=== PATIENT | male | born 1945 | race Caucasian/White ===

== ENCOUNTER 2016-04-10 11:51 | Day surgery (SDC) | payer MEDICARE, OTHER ==
--- NOTE | ~2016-04-10 | OP ---
Record Of Operation [facility] [address] [place]. [address] NAME: ALFONSO GARCIA : 45 STATUS : [facility]#: [id number] AGE: 70 ADM/REG DATE : 04/10/16 MR#: [id number] REPORT SERV DATE: 04/10/16 DICTATED BY: JESSE RODRIGUEZ III DATE: 04/10/16 REPORT STATUS : Draft TRANSCRIBED BY: MODL DATE: 04/10/16 DATE OF PROCEDURE: 04/10/2016 PROCEDURE: Cystoscopy, right retrograde, right ureteroscopic stone fragmentation with holmium laser and removal of stone fragments with insertion of double-J stent. PREOPERATIVE DIAGNOSIS: Right ureteral calculus. POSTOPERATIVE DIAGNOSIS: Right ureteral calculus. ANESTHESIA: General. SURGEON: Jesse Rodriguez M.D. DESCRIPTION OF PROCEDURE: Following induction of adequate general anesthesia, the patient was placed in dorsal lithotomy position, prepped and draped in a sterile fashion. The urethra was examined and noted to be normal. The prostate was occlusive, lateral lobes meeting in the midline and somewhat pedunculated median lobe. The bladder was heavily trabeculated with numerous cellules and diverticula. There were a few small stone fragments in the base of the bladder. No tumors were noted. The diverticula were examined, and there was no tumor. The 30- and 70-degree lens were used. There was a fairly severe angle around the median lobe to get to the right ureteral orifice. I was able to do a retrograde and the stone was identified. A wire was placed and I attempted to place a short rigid scope alongside it. The orifice was simply too small. I passed the scope over the wire until I found the stone, and on the dusting setting at 0.25, the stone was also rapidly dusted. I then passed a basket to gather up some of the fragments and one of the larger fragments was entrapped which came out to the orifice and we could not remove the basket, so the laser was used through the scope to actually break the stone up in the basket. The stones fell back into the bladder and a wire was placed. At this point, the scope would go along side the wire and fragmented additional stones with the dusting and non-dusting function. Few small stones out there and the remainder were 1 and 2 mm that were hard to gather in the basket. I looked up to approximately L4, L3, and it was very dilated, and there were no stones in the ureter. A retrograde was done and it showed no filling defects. The wire was in good position. A 26-Maori Percuflex stent was placed with a loop in the upper pole and a 3/4 loop in the bladder. A suture was left taped to the patient's penis for later removal. OB/MODL Jesse Rodriguez III, M.D. / [id number] CC: Record Of Operation [address] [address] NAME: ALFONSO GARCIA : 45 STATUS : [facility] PAT#: [id number] AGE: 70 ADM/REG DATE : 04/10/16 MR#: [id number] REPORT SERV DATE: 04/10/16 DICTATED BY: JESSE RODRIGUEZ III DATE: 04/10/16 REPORT STATUS : Draft TRANSCRIBED BY: MODL DATE: 04/10/16 Adriano Holguin III
[~2016-04-10 11:51] MED LIST: ACET500CAP PO; ADVIL PO; C5; PCET PO; T PO; ZESTORETIC1 TAB PO
== END 2016-04-10 18:26 | disposition home or self-care (01) ==
LOC: SDC 11:51
PROVIDERS: Urology
PROC: 0T768DZ Dilation of Right Ureter with Intraluminal Device, Via Natural or Artificial Opening Endoscopic (ICD-10-PCS; 2016-04-10)
PROC: 0TF68ZZ Fragmentation in Right Ureter, Via Natural or Artificial Opening Endoscopic (ICD-10-PCS; principal; 2016-04-10 15:00)
DX: N20.1 Calculus of ureter (principal); I10 Essential (primary) hypertension
CPT/HCPCS: 71020; 93005; C1758; C1769; C2617; J2250; J2370; J2405; J2710; J3010; Q9967

== ENCOUNTER 2016-05-21 16:37 | Emergency (ER) | payer MEDICARE, OTHER ==
[2016-05-21 17:01] LABS: WBC (NOT ORDERED) (RFLEX) 0 (0-5)
[2016-05-21 17:06] LABS: BASOPHILS 0.5 %; BASOPHILS ABSOLUTE 0.04 10/3/uL (0.0-0.16); EOSINOPHILS 1.8 %; EOSINOPHILS ABSOLUTE 0.13 10/3/uL (0.0-0.53); ER CBC TAT 0 Hrs 08 Mins; HEMOGLOBIN 13.8 g/dL (13.6-17.8); IMMATURE GRANULOCYTES 0.3 %; IMMATURE GRANULOCYTES ABSOLUTE 0.02 10/3/uL (0.0-0.11); LYMPHOCYTES 22.1 %; LYMPHOCYTES ABSOLUTE 1.63 10/3/uL (0.67-4.30); MANUAL DIFF NO %; MEAN CORPUS HGB CONC 34.5 g/dL (32.0-36.0); MEAN CORPUSCULAR HEMOGLOB 31.6 pg (26.0-34.0); MEAN CORPUSCULAR VOLUME 91.5 fL (80-100); MEAN PLATELET VOLUME 11.2 fL (9.2-13.0); MONOCYTES 11.9 %; MONOCYTES ABSOLUTE 0.88 10/3/uL (0.21-1.20); NEUTROPHILS 63.4 %; NEUTROPHILS ABSOLUTE 4.69 10/3/uL (2.02-8.40); PLATELET COUNT 197 10/3/uL (150-400); RBC DISTRIBUTION WIDTH 14.6 % (12.0-16.0); RED CELL COUNT 4.37 10/6/uL (4.7-6.1); WHITE BLOOD CELLS 7.4 10/3/uL (4.5-10.5)
[2016-05-21 17:14] LABS: ASCORBIC ACID (UR NOT ORDER) NEG (NEG); BILIRUBIN, URINE NEGATIVE (NEG); ER URINALYSIS TAT 0 Hrs 16 Mins; KETONE, URINE NEGATIVE (NEG); LEUKOCYTE ESTERASE(NOT OR NEG (NEG); NITRITE (URINE) NEG (NEG)
[2016-05-21 17:23] LABS: ALBUMIN 3.6 G/DL (3.5-5.0); ALKALINE PHOSPHATASE 67 U/L (45-117); CALCIUM, SERUM 8.8 MG/DL (8.5-10.4); CHLORIDE, SERUM 110 MMOL/L (96-112); CO2 (CARBON DIOXIDE) 22 MMOL/L (24-34); GLOBULIN 3.5 G/DL (2.5-4.1); GLUCOSE, SERUM 90 MG/DL (60-99); POTASSIUM, SERUM 3.7 MMOL/L (3.5-5.3); SGOT(AST) 18 U/L (5-40); SGPT(ALT) 21 U/L (5-65); SODIUM, SERUM 142 MMOL/L (135-148); TOTAL PROTEIN 7.1 G/DL (6.0-8.5)
[2016-05-21 17:24] LABS: BUN (BLOOD UREA NITROGEN) 28 MG/DL (6-23); GFR AFRICAN AMERICAN 88 ML/MIN (>=60); GFR NON AFRICAN AMERICAN 76 ML/MIN (>=60); TOTAL BILIRUBIN 1.1 MG/DL (0-1.2)
== END 2016-05-21 20:58 | disposition home or self-care (01) ==
LOC: ER 16:37
PROVIDERS: Emergency Medicine
DX: K57.32 Diverticulitis of large intestine without perforation or abscess without bleeding (principal); I71.4 Abdominal aortic aneurysm, without rupture; N28.89 Other specified disorders of kidney and ureter; I10 Essential (primary) hypertension; F17.200 Nicotine dependence, unspecified, uncomplicated; Z87.442 Personal history of urinary calculi; Z79.899 Other long term (current) drug therapy
CPT/HCPCS: 74176; 80053; 81001; 83690; 85025; 99284; A9270-GY

== ENCOUNTER 2016-06-08 10:55 | Emergency (ER) | payer MEDICARE, OTHER | END 2016-06-08 12:24 | disposition home or self-care (01) | LOC: ER 10:55 | PROC: 2W3RX1Z Immobilization of Left Lower Leg using Splint (ICD-10-PCS; principal; 2016-06-08) | DX: S86.912A Strain of unspecified muscle(s) and tendon(s) at lower leg level, left leg, initial encounter (principal); F17.200 Nicotine dependence, unspecified, uncomplicated; I10 Essential (primary) hypertension; Z85.528 Personal history of other malignant neoplasm of kidney; Z79.899 Other long term (current) drug therapy; X58.XXXA Exposure to other specified factors, initial encounter | CPT/HCPCS: 73560-LT; 99283 ==

== ENCOUNTER 2016-08-17 10:49 | Inpatient (IN) | payer MEDICARE, OTHER ==
[2016-08-04 15:52] LABS: BASOPHILS 0.3 %; BASOPHILS ABSOLUTE 0.02 10/3/uL (0.0-0.16); EOSINOPHILS ABSOLUTE 0.13 10/3/uL (0.0-0.53); HEMATOCRIT 44.8 % (40.0-51.0); IMMATURE GRANULOCYTES 0.3 %; IMMATURE GRANULOCYTES ABSOLUTE 0.02 10/3/uL (0.0-0.11); LYMPHOCYTES 25.6 %; LYMPHOCYTES ABSOLUTE 1.64 10/3/uL (0.67-4.30); MANUAL DIFF NO %; MEAN CORPUS HGB CONC 33.5 g/dL (32.0-36.0); MEAN CORPUSCULAR HEMOGLOB 31.1 pg (26.0-34.0); MEAN CORPUSCULAR VOLUME 92.8 fL (80-100); MEAN PLATELET VOLUME 10.8 fL (9.2-13.0); MONOCYTES 8.9 %; MONOCYTES ABSOLUTE 0.57 10/3/uL (0.21-1.20); NEUTROPHILS 62.9 %; NEUTROPHILS ABSOLUTE 4.02 10/3/uL (2.02-8.40); PLATELET COUNT 177 10/3/uL (150-400); RBC DISTRIBUTION WIDTH 14.2 % (12.0-16.0); RED CELL COUNT 4.83 10/6/uL (4.7-6.1); WHITE BLOOD CELLS 6.4 10/3/uL (4.5-10.5)
[2016-08-04 16:19] LABS: BUN (BLOOD UREA NITROGEN) 30 MG/DL (6-23); CALCIUM, SERUM 8.6 MG/DL (8.5-10.4); CHLORIDE, SERUM 107 MMOL/L (96-112); CREATININE 1.13 MG/DL (0.70-1.30); GFR AFRICAN AMERICAN 76 ML/MIN (>=60); GFR NON AFRICAN AMERICAN 65 ML/MIN (>=60); GLUCOSE, SERUM 91 MG/DL (60-99); SODIUM, SERUM 140 MMOL/L (135-148)
[2016-08-04 16:20] LABS: CO2 (CARBON DIOXIDE) 29 MMOL/L (24-34); POTASSIUM, SERUM 4.8 MMOL/L (3.5-5.3)
--- NOTE | ~2016-08-17 | OP ---
Record Of Operation [facility] [address] [place]. [address] NAME: ALFONSO GARCIA : 45 STATUS : ADM IN PAT#: [id number] AGE: 70 ADM/REG DATE : 08/17/16 MR#: [id number] REPORT SERV DATE: 08/17/16 DICTATED BY: EDIE EVANS DATE: 08/17/16 REPORT STATUS : Draft TRANSCRIBED BY: MODL DATE: 08/17/16 DATE OF PROCEDURE: 08/17/2016 PREOPERATIVE DIAGNOSIS: Right renal mass. POSTOPERATIVE DIAGNOSIS: Right renal mass. PROCEDURE PERFORMED: Robot-assisted laparoscopic right partial nephrectomy. SURGEON: Edie Evans M.D. ANESTHESIA: General. COMPLICATIONS: None. SPECIMEN: Right lower pole partial nephrectomy. BLOOD LOSS: 300 mL. DRAINS: Matty-Rockwell Pan. INDICATION: Mr. Garcia is a 70-year-old with an incidentally noted right lower pole renal lesion. This was discovered during CT for abdominal pain. This was further worked up with a contrasted CT and a chest x-ray. There was no evidence of any metastatic disease or renal vein involvement. A 2 cm right lower pole mass that does enhance. He presents for laparoscopic right partial nephrectomy via a robotic approach. TECHNIQUE: An informed consent was obtained, he was brought to the operating room. Ancef was administered perioperatively. General endotracheal anesthesia was administered. A TAP block was performed preop. The Pan catheter was placed. He was positioned in the lateral decubitus position with bed flexed. Care was taken to pad all pressure points. Pneumoperitoneum was established with a Veress needle in the right upper quadrant. I placed a 12 mm Visiport in infraumbilical midline position. Laparoscopic inspection showed no adhesions. The four 8 mm robotic trocars were placed in a linear configuration, right paramedian. The ascending colon and hepatic flexure were reflected medially by incising the white line with Harmonic scalpel. The lower pole of the kidney was identified. The ureter was left in situ. I elevated the lower pole of the kidney, incised Gerota's. The lower half of the kidney, perinephric fat elevated and retracted superiorly. At this point, the robot was docked. A blunt dissection. Bovie was utilized to skeletonized the lower pole of the kidney. The mass was visible, it was exophytic and off the lower pole posteriorly. Plane of partial nephrectomy was incised with Bovie. Partial nephrectomy was performed without hilar clamping with the EndoShears. Two prominent bleeders were oversewn with 2-0 Vicryl. The specimen was sent for intraoperative pathologic analysis. The tumor was encapsulated. There was an encapsulated tumor at the deep parenchymal margin. I deemed this to be an adequate enucleation of the tumor. Hemostasis Record Of Operation [facility] [address] [facility] [place]. [address] NAME: ALFONSO GARCIA : 45 STATUS : ADM IN PAT#: [id number] AGE: 70 ADM/REG DATE : 08/17/16 MR#: [id number] REPORT SERV DATE: 08/17/16 DICTATED BY: EDIE EVANS DATE: 08/17/16 REPORT STATUS : Draft TRANSCRIBED BY: KARLEE DATE: 08/17/16 was obtained with Bovie and additional 2-0 Vicryl suture ligatures. The perinephric fat and Gerota's was reapproximated over the right lower pole with a running 2-0 Vicryl. The bed of the partial nephrectomy was infiltrated with Floseal for additional hemostasis. Matty- Rockwell was placed through the inferior most right lower quadrant robotic port. Sponge and needle counts were correct. I undocked the robot, removed the trocars, and closed the extraction site fascia with 0 Vicryl. Wounds were irrigated. The skin was closed with subcuticular Monocryl. He will keep his Matty-Rockwell for two to five days, should be out of bed tomorrow. MISAEL/KARLEE Edie Evans M.D. / [id number] CC: Edie Evans M.D.
--- NOTE | ~2016-08-17 | HP ---
History And Physical [address] [place]. [address] NAME: ALFONSO GARCIA : 45 STATUS : ADM IN [facility]#: [id number] AGE: 70 ADM/REG DATE : 08/17/16 MR#: [id number] REPORT SERV DATE: 08/17/16 DICTATED BY: EDIE EVANS DATE: 08/17/16 REPORT STATUS : Draft TRANSCRIBED BY: MODL DATE: 08/17/16 DATE OF ADMISSION: 08/17/2016 CHIEF COMPLAINT: Right renal mass. HISTORY OF PRESENT ILLNESS: Mr. Garcia is a 70-year-old with a history of kidney stones. He had a CT performed earlier this year to assess for stone that showed incidental finding of a right lower pole mass. He has not had any gross hematuria or flank pain or UTIs. Mass was further evaluated with contrasted CT. This showed an enhancing right renal mass, exophytic, off the lower pole posteriorly. There is no evidence of any metastatic disease on the CT or chest x-ray. PAST MEDICAL HISTORY: A 4 cm abdominal aortic aneurysm, hypertension, arthritis, kidney stones, hip replacement. ALLERGIES: NONE KNOWN. MEDICATIONS: Lisinopril/HCTZ. SOCIAL HISTORY: Single. Nonsmoker. FAMILY HISTORY: No family history of malignancy. There is a history of kidney stones. REVIEW OF SYSTEMS: No fevers, chills, nausea, vomiting, chest pain, shortness of breath, hematuria, or UTIs. PHYSICAL EXAMINATION: VITAL SIGNS: Blood pressure 136/65, pulse 57, respirations 20, 97.4. GENERAL: Pleasant, 70-year-old, appearing of his age, in no acute distress. EYES: Sclerae anicteric. LUNGS: Clear. HEART: Regular rate and rhythm. CHEST: Clear anteriorly. ABDOMEN: Soft, nontender, nondistended. No palpable mass. No rebound or guarding. No right or left CVA tenderness. : Phallus is circumcised. No inguinal hernia. NEURO: He is oriented to person, place, time, and situation. No supraclavicular or inguinal adenopathy. LABORATORY DATA: Creatinine is 1.13. Hematocrit 44, platelets 177, white blood cell count is normal. IMAGING: Chest x-ray is clear. CT of the abdomen and pelvis, dated 05/30/2016 shows an enhancing 1.8 cm right lower pole renal mass. IMPRESSION: Right renal mass likely T1a right renal cell carcinoma. History And Physical [address] [address] NAME: ALFONSO GARCIA : 45 STATUS : ADM IN [facility]#: [id number] AGE: 70 ADM/REG DATE : 08/17/16 MR#: [id number] REPORT SERV DATE: 08/17/16 DICTATED BY: EDIE EVANS DATE: 08/17/16 REPORT STATUS : Draft TRANSCRIBED BY: KARLEE DATE: 08/17/16 PLAN: Mr. Garcia is admitted. He will undergo laparoscopic robot-assisted right partial nephrectomy. Risks of bleeding, infection, benign pathologic findings, urinoma, and tumor recurrence were discussed. He understands that he will have a Pan catheter for one or two days postop and will have a JIGNA for two to seven days postop. He agrees to proceed. Ancef will be given perioperatively. MISAEL/KARLEE Edie Evans M.D. / [id number] CC: Edie Evans M.D.
[2016-08-18 06:31] LABS: BASOPHILS 0.1 %; BASOPHILS ABSOLUTE 0.01 10/3/uL (0.0-0.16); EOSINOPHILS 0.1 %; EOSINOPHILS ABSOLUTE 0.01 10/3/uL (0.0-0.53); HEMOGLOBIN 12.8 g/dL (13.6-17.8); IMMATURE GRANULOCYTES 0.1 %; IMMATURE GRANULOCYTES ABSOLUTE 0.01 10/3/uL (0.0-0.11); LYMPHOCYTES 9.1 %; LYMPHOCYTES ABSOLUTE 0.81 10/3/uL (0.67-4.30); MEAN CORPUS HGB CONC 32.7 g/dL (32.0-36.0); MEAN CORPUSCULAR HEMOGLOB 30.6 pg (26.0-34.0); MEAN CORPUSCULAR VOLUME 93.5 fL (80-100); MEAN PLATELET VOLUME 10.8 fL (9.2-13.0); MONOCYTES 14.7 %; NEUTROPHILS 75.9 %; NEUTROPHILS ABSOLUTE 6.73 10/3/uL (2.02-8.40); PLATELET COUNT 170 10/3/uL (150-400); RBC DISTRIBUTION WIDTH 14.7 % (12.0-16.0); RED CELL COUNT 4.18 10/6/uL (4.7-6.1); WHITE BLOOD CELLS 8.9 10/3/uL (4.5-10.5)
[2016-08-18 06:36] LABS: CALCIUM, SERUM 7.9 MG/DL (8.5-10.4); CHLORIDE, SERUM 104 MMOL/L (96-112); CREATININE 1.14 MG/DL (0.70-1.30); GFR AFRICAN AMERICAN 75 ML/MIN (>=60); GFR NON AFRICAN AMERICAN 65 ML/MIN (>=60); POTASSIUM, SERUM 4.1 MMOL/L (3.5-5.3); SODIUM, SERUM 135 MMOL/L (135-148)
[2016-08-18 06:37] LABS: BUN (BLOOD UREA NITROGEN) 21 MG/DL (6-23); CO2 (CARBON DIOXIDE) 24 MMOL/L (24-34); GLUCOSE, SERUM 122 MG/DL (60-99)
[2016-08-18 06:43] LABS: HEMATOCRIT 39.1 % (40.0-51.0); MANUAL DIFF NO %
[2016-08-19 07:10] LABS: BASOPHILS 0 %; EOSINOPHILS 0.1 %; EOSINOPHILS ABSOLUTE 0.01 10/3/uL (0.0-0.53); HEMOGLOBIN 13.1 g/dL (13.6-17.8); IMMATURE GRANULOCYTES 0.1 %; IMMATURE GRANULOCYTES ABSOLUTE 0.01 10/3/uL (0.0-0.11); LYMPHOCYTES 7.5 %; LYMPHOCYTES ABSOLUTE 0.69 10/3/uL (0.67-4.30); MEAN CORPUS HGB CONC 33.6 g/dL (32.0-36.0); MEAN CORPUSCULAR HEMOGLOB 30.8 pg (26.0-34.0); MEAN CORPUSCULAR VOLUME 91.8 fL (80-100); MEAN PLATELET VOLUME 10.8 fL (9.2-13.0); MONOCYTES 15.8 %; MONOCYTES ABSOLUTE 1.45 10/3/uL (0.21-1.20); NEUTROPHILS 76.5 %; NEUTROPHILS ABSOLUTE 7.02 10/3/uL (2.02-8.40); PLATELET COUNT 166 10/3/uL (150-400); RBC DISTRIBUTION WIDTH 14.2 % (12.0-16.0); RED CELL COUNT 4.25 10/6/uL (4.7-6.1); WHITE BLOOD CELLS 9.2 10/3/uL (4.5-10.5)
[2016-08-19 07:16] LABS: MANUAL DIFF NO %
[2016-08-19 07:22] LABS: CALCIUM, SERUM 8.5 MG/DL (8.5-10.4); CHLORIDE, SERUM 101 MMOL/L (96-112); CO2 (CARBON DIOXIDE) 27 MMOL/L (24-34); CREATININE 0.96 MG/DL (0.70-1.30); GFR AFRICAN AMERICAN 92 ML/MIN (>=60); GFR NON AFRICAN AMERICAN 80 ML/MIN (>=60); GLUCOSE, SERUM 106 MG/DL (60-99); POTASSIUM, SERUM 3.7 MMOL/L (3.5-5.3); SODIUM, SERUM 136 MMOL/L (135-148)
[2016-08-19 07:23] LABS: BUN (BLOOD UREA NITROGEN) 13 MG/DL (6-23)
[2016-08-19] MEDS ORDERED: PCET PO (10:02)
== END 2016-08-19 13:22 | disposition home or self-care (01) | DRG 658 ==
LOC: SDC/OF 10:49 → PACU 16:55 → 4SO 17:54
PROVIDERS: Urology
PROC: 8E0W4CZ Robotic Assisted Procedure of Trunk Region, Percutaneous Endoscopic Approach (ICD-10-PCS; 2016-08-17)
PROC: 0TB04ZZ Excision of Right Kidney, Percutaneous Endoscopic Approach (ICD-10-PCS; principal; 2016-08-17 12:00)
DX: C64.1 Malignant neoplasm of right kidney, except renal pelvis (principal)
CPT/HCPCS: 71020; 80048; 83735; 85025; 88307; 88331; 88341; 88342; 93005; A9270-GY; J0360; J0690; J2250; J2270; J2405; J2710; J3010